=== PATIENT | female | born 1955 | race Caucasian/White ===

== ENCOUNTER 2017-09-18 20:43 | Inpatient (IN) | payer OTHER ==
[~2017-09-18] VITALS: Ht 157.5 cm; Wt 114.3 kg
[~2017-09-18 20:43] MED LIST: CLONAZEPAM0.5 M1 PO; CYMBALTA60 MG PO; DOXEPIN HCL10 MG PO; INTRINSI B12-F1 EACH PO; SEROQUEL400 MG PO
[2017-09-22] MEDS ORDERED: OXYC1TAB9 PO (09:16)
[2017-09-22] MEDS ORDERED: INTEGRA PLUS C1 EACH PO (09:16)
[2017-09-22] MEDS ORDERED: XARELTO10 MG PO (09:16)
== END 2017-09-22 18:18 | DRG 470 ==
LOC: O/R 09-19 07:30 → SURH 09-19 07:30 → SURG 09-19 09:00 → SURH 09-19 13:02
PROVIDERS: Orthopaedic Surgery Sports Medicine
PROC: 0SRC0J9 Replacement of Right Knee Joint with Synthetic Substitute, Cemented, Open Approach (ICD-10-PCS; principal; 2017-09-19 09:00)
DX: M17.11 Unilateral primary osteoarthritis, right knee (principal)